=== PATIENT | male | born 1965 | race Caucasian/White ===

== ENCOUNTER 2016-10-24 22:46 | Emergency (ER) | payer SELFPAY ==
[~2016-10-24] VITALS: Ht 177.8 cm; Wt 87.0 kg
[2016-10-24 22:49] VITALS: BP 108/73
[2016-10-24] MEDS ORDERED: HYDROcodone/APAP 5/325 TABLET PO STA (23:05)
[2016-10-24] MEDS ORDERED: HYDROcodone/APAP 5/325 TABLET ONE (23:20)
[2016-10-24 23:25] LABS: HEMOGLOBIN 14.8 g/dL (13.7-18.0)
[2016-10-24] MEDS ORDERED: PLEASE ENTER ALLERGIES MC SCH ×2 (23:30)
[2016-10-24 23:40] LABS: BLOOD UREA NITROGEN 10 mg/dL (7-18)
== END 2016-10-24 23:54 | disposition home or self-care (01) ==
LOC: ED 23:48
DX: S80.811A Abrasion, right lower leg, initial encounter (principal); L03.115 Cellulitis of right lower limb; F17.210 Nicotine dependence, cigarettes, uncomplicated; X58.XXXA Exposure to other specified factors, initial encounter; Y93.89 Activity, other specified; Y92.89 Other specified places as the place of occurrence of the external cause; Y99.8 Other external cause status; Z59.0 Homelessness
CPT/HCPCS: 36415; 80048; 82040; 85025; 99284